=== PATIENT | female | born 1975 | race Caucasian/White ===

== ENCOUNTER 2020-07-17 12:27 | Emergency (ER) | payer OTHER, SELFPAY ==
[2020-07-17 12:34] VITALS: BP 190/98; PULSE 70; RESP 16; TEMP 36.7; O2SAT 100
--- NOTE | 2020-07-17 12:47 | ED.UPPEXIN ---
HPI - Extremity Injury (Upper) General Chief Complaint: Extremity Injury, Upper Stated Complaint: right thumb pain Time Seen by Provider: 07/17/20 12:47 Source: patient and RN notes reviewed History of Present Illness HPI narrative: Patient is a 45-year-old female who presents the urgent care with complaints of right thumb pain and tenderness. Patient states is been ongoing for approximately 3 weeks after she tore out some young in her home. Patient states that she spoke to her PCP regarding the issue and he put her on naproxen for the pain and told her it was likely related to arthritis. Patient denies of any history of known injury to the right upper extremity. No other acute complaints. No acute distress noted. Patient aware of the plan of care. Some parts of this dictation were generated by voice recognition software and may contain typographical and/or grammatical inaccuracies. Related Data Home Medications Medication Instructions Recorded Confirmed fluoxetine 40 mg PO DAILY 07/17/20 07/17/20 gabapentin 600 mg PO TID 07/17/20 07/17/20 naproxen 500 mg PO BID 07/17/20 07/17/20 Allergies Allergy/AdvReac Type Severity Reaction Status Date / Time No Known Allergies Allergy Verified 07/17/20 12:46 Review of Systems Review of Systems: Narrative: CONSTITUTIONAL: Denies fever, chills, or sweats. EYES: Denies visual changes, redness, or discharge. ENT: Denies rhinorrhea, congestion, sore throat, or otalgia. CARDIOVASCULAR: Denies chest pain, palpitations, or edema. RESPIRATORY: Denies cough or dyspnea. GASTROINTESTINAL: Denies abdominal pain, nausea, vomiting, or diarrhea. GENITOURINARY: Denies dysuria or hematuria. SKIN: Denies rash or itching. MUSCULOSKELETAL: Reports of right thumb pain and tenderness NEUROLOGIC: Denies headache, numbness, or weakness. All other systems reviewed are negative, except as documented in HPI. [facility] Comments At the time of my signature, I reviewed and agree with the nursing past medical, surgical, social, and family history. There is no relevant family history pertinent to the patient complaint. Exam Narrative: Exam Narrative: GENERAL: This is a well-nourished, well-developed patient, in no apparent distress. HEAD: normocephalic, atraumatic. EYES: PERRL. Sclera clear/white. Vision is grossly intact. EARS: External ears normal NOSE: External nose normal with no obvious nasal discharge, nares without redness, no rhinorrhea. THROAT: Mucous membranes moist NECK: Neck supple SKIN: warm, intact with no suspicious lesions or rash, good texture and turgor. NEURO: awake, alert, and oriented to person, place and time. There were no obvious focal neurologic abnormalities. EXTREMITIES: No obvious deformity, injury, edema or ecchymosis noted to the right hand/right thumb. Mild to moderate tenderness to the right thenar eminence. Range of motion to right upper extremity within normal limits with equal pipe coverer. Positive strong right radial pulse with capillary refill less than 2 seconds. Course Vital Signs Vital signs: Vital Signs Temperature 98.1 F 07/17/20 12:34 Pulse Rate 70 07/17/20 12:34 Respiratory Rate 16 07/17/20 12:34 Blood Pressure 190/98 H 07/17/20 12:34 Pulse Oximetry 100 07/17/20 12:34 Temperature 98.1 F 07/17/20 12:34 Pulse Rate 70 07/17/20 12:34 Respiratory Rate 16 07/17/20 12:34 Blood Pressure 190/98 H 07/17/20 12:34 Pulse Oximetry 100 07/17/20 12:34 Reviewed-patient is informed that they may have pre-hypertension or hypertension based on a blood pressure reading in the department. I recommend the patient call the primary care provider listed on their discharge instructions or a physician of their choice this week to arrange follow-up for further evaluation of possible pre-hypertension or hypertension. MDM - Extremity Injury (Upper) MDM Narrative Medical decision making narrative: Advised the patient [facility]
== END 2020-07-17 13:09 | disposition home or self-care (01) ==
PROVIDERS: Emergency Provider Nurse Practitioner Family; PCP Physician Assistant
DX: M25.541 Pain in joints of right hand (principal); F32.9 Major depressive disorder, single episode, unspecified
CPT/HCPCS: 99212; G0463

== ENCOUNTER 2021-10-02 18:36 | Emergency (ER) | payer OTHER, SELFPAY ==
[2021-10-02 18:44] VITALS: BP 154/95; PULSE 80; RESP 32; TEMP 36.6; O2SAT 97
--- NOTE | 2021-10-02 18:54 | ED.URI ---
HPI - URI/Sore Throat General Chief Complaint: Upper Respiratory Infection Stated Complaint: breathing prob Time Seen by Provider: 10/02/21 18:54 Source: patient and family Mode of arrival: ambulatory History of Present Illness HPI Narrative: patient presents with a two week history of cough and congestion. no shortness of breath and no chest pain. paitient reports more sinus pressure , fever and nausea oover the last few days. MD elicited complaint: fever, cough, nasal congestion and sinus pain Related Data Home Medications Medication Instructions Recorded Confirmed fluoxetine 40 mg PO DAILY 07/17/20 10/02/21 gabapentin 600 mg PO TID 07/17/20 10/02/21 naproxen 500 mg PO BID 07/17/20 10/02/21 atorvastatin 20 mg PO DAILY 10/02/21 10/02/21 venlafaxine 75 mg PO DAILY 10/02/21 10/02/21 venlafaxine 150 mg PO DAILY 10/02/21 10/02/21 zolpidem 5 mg PO HS PRN 10/02/21 10/02/21 Allergies Allergy/AdvReac Type Severity Reaction Status Date / Time No Known Allergies Allergy Verified 10/02/21 19:02 Review of Systems Review of Systems: CONSTITUTIONAL: Denies chills, or sweats. Reports fever and generalized body aches EYES: Denies visual changes, redness, or discharge. ENT: Denies otalgia. Reports nasal congestion runny nose and sore throat CARDIOVASCULAR: Denies chest pain, palpitations, or edema. RESPIRATORY: Denies dyspnea. Reports occasional cough GASTROINTESTINAL: Denies abdominal pain, nausea, vomiting, or diarrhea. GENITOURINARY: Denies dysuria or hematuria. SKIN: Denies rash or itching. MUSCULOSKELETAL: Denies back pain, joint pain, or myalgia. Reports generalized body aches NEUROLOGIC: Denies headache, numbness, or weakness. PSYCHIATRIC: Denies anxiety or depression. [facility] Comments At time of signature, agree with nursing past medical, surgical, social and family history. There is no relevant family history pertinent to the presenting complaint Exam Narrative: CONSTITUTIONAL: Denies chills, or sweats. Reports fever and generalized body aches EYES: Denies visual changes, redness, or discharge. ENT: Denies otalgia. Reports nasal congestion runny nose and sore throat mild maxillary sinus pressure CARDIOVASCULAR: Denies chest pain, palpitations, or edema. RESPIRATORY: Denies dyspnea. Reports occasional cough GASTROINTESTINAL: Denies abdominal pain, nausea, vomiting, or diarrhea. GENITOURINARY: Denies dysuria or hematuria. SKIN: Denies rash or itching. MUSCULOSKELETAL: Denies back pain, joint pain, or myalgia. Reports generalized body aches NEUROLOGIC: Denies headache, numbness, or weakness. PSYCHIATRIC: Denies anxiety or depression. Course Course Level of Care: Express Care Visit Vital Signs Vital signs: Vital Signs Temperature 36.6 C 10/02/21 18:44 Pulse Rate 80 10/02/21 18:44 Respiratory Rate 32 H 10/02/21 18:44 Blood Pressure 154/95 H 10/02/21 18:44 Pulse Oximetry 97 10/02/21 18:44 Temperature 36.6 C 10/02/21 18:44 Pulse Rate 80 10/02/21 18:44 Respiratory Rate 32 H 10/02/21 18:44 Blood Pressure 154/95 H 10/02/21 18:44 Pulse Oximetry 97 10/02/21 18:44 Please BENJAMÍN schedule a followup visit with your personal physician for further evaluation and treatment. Including recheck and discussion of your blood pressure. If your symptoms persist, change or worsen significantly before you can contact your personal physician then please, without delay, go to the emergency department for further evaluation MDM - URI/Sore Throat Differential Diagnosis Differential diagnosis: Likely upper respiratory infection, croup, otitis media, sinusitis, viral infection, bronchitis and influenza Lab Data Labs: Influenza A Screen Negative Reference Range: Negative Influenza B Screen Negative Reference Range: Negative Critical Care Time Critical Care Time Critical Care T
[2021-10-04 20:23] LABS: SARS-CoV-2 RNA PCR Positive
== END 2021-10-02 19:25 | disposition home or self-care (01) ==
PROVIDERS: Emergency Provider Nurse Practitioner Family; PCP Physician Assistant
DX: J06.9 Acute upper respiratory infection, unspecified (principal); B34.9 Viral infection, unspecified; J32.9 Chronic sinusitis, unspecified; Z20.822 Contact with and (suspected) exposure to COVID-19
CPT/HCPCS: 87426; 87804; 99213; C9803; G0463; U0003; U0005

== ENCOUNTER 2023-09-08 19:29 | Emergency (ER) | payer OTHER, SELFPAY ==
[2023-09-08 19:30] VITALS: BP 143/90; PULSE 103; RESP 20; TEMP 37.6; O2SAT 98
--- NOTE | 2023-09-08 19:38 | ED.GENADULT ---
HPI - General Adult General Chief complaint: Upper Respiratory Infection Stated complaint: Ear Pain/Sore Throat/Congestion Source: patient, RN notes reviewed and old records reviewed Mode of arrival: ambulatory Limitations: no limitations History of Present Illness HPI narrative: 48-year-old female presents to [facility] with complaint sore throat, bilateral ear pain, sinus congestion, sinus pressure this started 3 days ago. Patient taking [id number] medications with no relief. Patient denies cough, dizziness, weakness, chest pain, shortness of breath, vomiting MD complaint: sore throat, earaches Onset (ago): day(s) (3) Related Data Home Medications Medication Instructions Recorded Confirmed gabapentin 600 mg tablet 600 mg PO TID 07/17/20 09/08/23 atorvastatin 20 mg tablet 20 mg PO DAILY 10/02/21 09/08/23 venlafaxine 150 mg 150 mg PO DAILY 10/02/21 09/08/23 capsule,extended release 24 hr buspirone 10 mg tablet 10 mg PO BID 09/08/23 09/08/23 Allergies Allergy/AdvReac Type Severity Reaction Status Date / Time No Known Allergies Allergy Verified 10/02/21 19:02 Review of Systems Constitutional: Constitutional: Reports no additional constitutional complaints, Denies body ache(s), Denies chills, Denies fatigue, Denies fever(s) and Denies headache(s) Eyes: Eyes: Reports no additional eye complaints and Denies blurry vision ENT: Reports as per HPI, Denies vertigo, Denies dizziness, Denies ear discharge, Reports otalgia, Denies facial pain, Denies headache(s), Reports nasal congestion, Reports nasal discharge, Denies sinus pain, Reports sinus pressure and Reports sore throat Cardiovascular: Cardiovascular: Reports no additional cardiovascular complaints, Denies chest pain, Denies chest pain at rest, Denies rapid heart rate and Denies dyspnea Respiratory: Respiratory: Reports as per HPI, Denies chest congestion, Denies cough, Denies pain on inspiration, Denies pain with cough and Denies dyspnea Gastrointestinal: Gastrointestinal: Denies abdominal pain, Denies diarrhea, Denies nausea and Denies vomiting Integumentary/Breasts: Skin/Breast: Denies rash Neurologic: Reports system reviewed and no additional complaints, except as documented, Denies vertigo, Denies dizziness and Denies headache(s) Endocrine: Endocrine: Denies fatigue [facility] Comments At the time of my signature, I reviewed and agree with the nursing past medical, surgical, social, and family history. There is no relevant family history pertinent to the patient complaint. Exam Const: General: cooperative, healthy appearing, no acute distress and well nourished Nutritional Appearance: well nourished Orientation/consciousness: patient oriented x3 Limitations: no limitations HENMT: Head: normal to inspection and normocephalic Ears: external ears normal, TM's normal bilaterally, mastoids normal and Abnormal EAC present Face/Nose/Sinus: normal facial exam Face and sinus: normal facial exam Mouth: Yes Normal oral and palatal mucosa present, Yes oropharynx normal and Yes moist mucous membranes Throat: tonsils normal, uvula midline and no uvular edema Eyes: General: appearance normal, both eyes and all related structures Sclera: sclerae normal Pupils: Equal, round and reactive pupils present Resp: Effort & Inspection: normal respiratory effort, able to speak in complete sentences, no audible wheezes, no cough, no respiratory distress and no retractions Auscultation: clear to auscultation bilaterally, no crackles, no rales, no rhonchi and no wheezes Cardio: Rate: regular rate Rhythm: regular rhythm Skin: General skin exam: normal color and no rashes or lesions noted Neuro: General: patient oriented x3 Cranial nerves: Yes Equal, round and reactive pupils present Psych: Appearance: grossly normal Mental Status: mental status grossly normal Speech and movement: Normal speech and movement present Affect: normal affect Course Course Emergency [facility]
== END 2023-09-08 19:59 | disposition home or self-care (01) ==
PROVIDERS: Emergency Provider Registered Nurse; PCP Physician Assistant
DX: B34.9 Viral infection, unspecified (principal); J02.9 Acute pharyngitis, unspecified; Z20.822 Contact with and (suspected) exposure to COVID-19
CPT/HCPCS: 87081; 87426; 87804; 87880; 99213; C9803; G0463

== ENCOUNTER 2023-10-23 18:35 | Emergency (ER) | payer OTHER, SELFPAY ==
[2023-10-23 18:44] VITALS: BP 152/88; PULSE 100; RESP 20; TEMP 36.2; O2SAT 97
--- NOTE | 2023-10-23 19:00 | ED.URI ---
HPI - URI/Sore Throat General Chief Complaint: Upper Respiratory Infection Stated Complaint: Sore throat, fever, loss of appetite History of Present Illness HPI Narrative: PATIENT PRESENTS WITH A SORE THROAT AND A WHITE COATING TO HER TONGUE THIS BEEN THERE FOR 2-3 DAYS. PATIENT DENIES ANY TROUBLE SWALLOWING NO DROOLING. Related Data Home Medications Medication Instructions Recorded Confirmed gabapentin 600 mg tablet 600 mg PO TID 07/17/20 10/23/23 atorvastatin 20 mg tablet 20 mg PO DAILY 10/02/21 10/23/23 venlafaxine 150 mg 150 mg PO DAILY 10/02/21 10/23/23 capsule,extended release 24 hr buspirone 10 mg tablet 10 mg PO BID 09/08/23 10/23/23 Allergies Allergy/AdvReac Type Severity Reaction Status Date / Time No Known Allergies Allergy Verified 10/02/21 19:02 Review of Systems Review of Systems: CONSTITUTIONAL: DENIES CHILLS, OR SWEATS. REPORTS FEVER AND GENERALIZED BODY ACHES EYES: DENIES VISUAL CHANGES, REDNESS, OR DISCHARGE. ENT: DENIES OTALGIA. REPORTS NASAL CONGESTION RUNNY NOSE AND SORE THROAT CARDIOVASCULAR: DENIES CHEST PAIN, PALPITATIONS, OR EDEMA. RESPIRATORY: DENIES DYSPNEA. REPORTS OCCASIONAL COUGH GASTROINTESTINAL: DENIES ABDOMINAL PAIN, NAUSEA, VOMITING, OR DIARRHEA. GENITOURINARY: DENIES DYSURIA OR HEMATURIA. SKIN: DENIES RASH OR ITCHING. MUSCULOSKELETAL: DENIES BACK PAIN, JOINT PAIN, OR MYALGIA. REPORTS GENERALIZED BODY ACHES NEUROLOGIC: DENIES HEADACHE, NUMBNESS, OR WEAKNESS. PSYCHIATRIC: DENIES ANXIETY OR DEPRESSION. [facility] Comments AT TIME OF SIGNATURE, AGREE WITH NURSING PAST MEDICAL, SURGICAL, SOCIAL AND FAMILY HISTORY. THERE IS NO RELEVANT FAMILY HISTORY PERTINENT TO THE PRESENTING COMPLAINT Exam Narrative: THE PATIENT IS A WELL-DEVELOPED, WELL-NOURISHED IN NO ACUTE DISTRESS. SKIN: SKIN IS WARM AND DRY WITHOUT ERYTHEMA, SWELLING OR EXUDATE. THERE IS GOOD TURGOR. NO TENTING. HEAD: ATRAUMATIC. NORMOCEPHALIC. NO TEMPORAL OR SCALP TENDERNESS. EYES: MOIST AND BRIGHT. SCLERA AND CONJUNCTIVAE NORMAL. NO DISCHARGE. PERRLA. EXTRAOCULAR MOTIONS INTACT. GROSS VISUAL ACUITY INTACT. EARS: PINNA IS NORMAL SHAPE AND CONTOUR. CLEAR EXTERNAL AUDITORY CANALS. TM PEARLY SOLO WITH GOOD CONE OF LIGHT, NO ERYTHEMA OR SUPPURATION. BILATERAL CERUMEN NOTED NO GROSS HEARING DEFICIT. NOSE: PINK, MOIST MUCOSA WITH GOOD AIR MOVEMENT. CLEAR RHINORRHEA WITHOUT NASAL FLARING. SEPTUM MIDLINE. MOUTH: MOIST MUCOUS MEMBRANES. WHITE COATING TO TONGUE AND SIDES OF MOUTH THAT DOES NOT SCRAPE OFF WITH TONGUE BLADE THROAT; MILD ERYTHEMA NOTED TO POSTERIOR OROPHARYNX WITH MODERATE POSTNASAL DRAINAGE. WITHOUT EXUDATE OR ULCERATION.. UVULA MIDLINE. NORMAL MOVEMENT OF SOFT PALATE. NECK: SUPPLE AND NONTENDER WITH FULL RANGE OF MOTION WITHOUT DISCOMFORT. NO MENINGEAL SIGNS. LUNGS: EQUAL AND BILATERAL BREATH SOUNDS WITHOUT WHEEZES, RALES OR RHONCHI. CHEST: THE CHEST WALL IS WITHOUT RETRACTIONS OR USE OF ACCESSORY MUSCLES. HEART: HAS A REGULAR RATE AND RHYTHM WITHOUT MURMUR, GALLOPS, CLICK OR RUB. ABDOMEN: SOFT, NONTENDER WITH POSITIVE ACTIVE BOWEL SOUNDS. NO REBOUND TENDERNESS. EXTREMITIES: WITHOUT CYANOSIS, CLUBBING OR EDEMA. EQUAL 2+ DISTAL PULSES AND 2 SECOND CAPILLARY REFILL NOTED. NEUROLOGIC: ALERT, ACTIVE, . THE PATIENT MOVES ALL EXTREMITIES WITH NORMAL MUSCLE STRENGTH. NORMAL MUSCLE TONE IS NOTED. NORMAL COORDINATION IS NOTED. NO FOCAL NEUROLOGICAL FINDINGS NOTED. Course Course Level of Care: Express Care Visit Vital Signs Vital signs: Vital Signs Temperature 36.2 C L 10/23/23 18:44 Pulse Rate 100 10/23/23 18:44 Respiratory Rate 20 10/23/23 18:44 Blood Pressure 152/88 H 10/23/23 18:44 Pulse Oximetry 97 10/23/23 18:44 Oxygen Delivery Room Air 10/23/23 18:44 Temperature 36.2 C L 10/23/23 18:44 Pulse Rate 100 10/23/23 18:44 Respiratory Rate 20 10/23/23 18:44 Blood Pressure 152/88 H 10/23/23 18:44 Pulse Oximetry 97 10/23/23 18:44 Oxygen Delivery Room Air 10/23/23 18:44 PLEASE
== END 2023-10-23 19:10 | disposition home or self-care (01) ==
PROVIDERS: Emergency Provider Nurse Practitioner Family; PCP Physician Assistant
DX: J02.9 Acute pharyngitis, unspecified (principal); B37.0 Candidal stomatitis
CPT/HCPCS: 87081; 87880; 99213; G0463